=== PATIENT | male | born 1960 | race Caucasian/White ===

== ENCOUNTER 2021-04-20 03:59 | Inpatient (IN) ==
[2021-04-20] MEDS ORDERED: Morphine 4 MG/ML VIAL (1 ml) IV ONE (04:17)
[2021-04-20] MEDS ORDERED: Morphine 4 MG/ML VIAL (1 ml) IV PRN (04:17)
[2021-04-20 04:38] LABS: Hematocrit 43 % (42-52); Hemoglobin 14.5 g/dL (14.0-18.0); Mean Corpuscular HGB Conc 34 g/dL (31-36); Mean Corpuscular Hemoglobin 31 pg (27-31); Mean Corpuscular Volume 90 fL (80-94); Mean Platelet Volume 6.4 fL (7.4-10.4); Platelet Count 479 10^3/uL (150-450); Red Blood Count 4.76 10^6 /uL (4.18-5.48); Red Cell Distribution Width 15 % (10-15); White Blood Count 11.8 10^3/uL (3.5-10.8)
[2021-04-20 04:56] LABS: Albumin/Globulin Ratio 0.8 (1-3); Calcium 8.8 mg/dL (8.6-10.3); Globulin 3.6 g/dL (2-4); Total Bilirubin 0.3 mg/dL (0.2-1.0); Total Protein 6.6 g/dL (6.4-8.9)
[2021-04-20] MEDS ORDERED: Iohexol 300 (CONTRAST) 10 ML SDV IV ONE ×2 (05:05→16:09)
[2021-04-20 05:11] LABS: ABS Basophils 0.1 10^3/ul (0-0.2); ABS Eosinophils 0.5 10^3/ul (0-0.6); ABS Lymphocytes 2.5 10^3/ul (1.0-4.8); ABS Monocytes 1.7 10^3/ul (0-0.8); ABS Neutrophils 7.1 10^3/ul (1.5-7.7); Eosinophil % 3.9 %; Lymphocyte % 21.2 %
[2021-04-20 05:24] LABS: Troponin I 0.01 ng/mL (<0.03)
[2021-04-20 05:37] LABS: Influenza A Molecular Negative (Negative)
[2021-04-20] MEDS ORDERED: Azithromycin 500 mg/250 ml NS 500 MG/250 ML BAG IVPB ONE (06:13)
[2021-04-20] MEDS ORDERED: methylPREDNISolone 125 mg 2 ML VIAL IV ONE (06:13)
[2021-04-20] MEDS ORDERED: Albuterol/Ipratropium NEB.SOL (2.5/0.5 MG) 3 ML NEB.SOLN INH PRN (06:47)
[2021-04-20] MEDS ORDERED: Lidocaine PATCH 5% PATCH TRANSDERM PRN (06:54)
[2021-04-20] MEDS ORDERED: Heparin 5000 UNITS/ML 1 mL VIAL SUBCUT SCH (07:00)
[2021-04-20] MEDS ORDERED: Lactated Ringers 1000 ml BAG 1,000 ML IV SCH (07:00)
[2021-04-20] MEDS: methylPREDNISolone SOD 40 mg/ml 1 ml VIAL IV SCH ×3 (07:39→23:10)
[2021-04-20] MEDS: cefTRIAXone 1 gm/50 mL NS BAG 1 GM/50 ML BAG IVPB SCH (08:30)
[2021-04-20] MEDS: Albuterol HFA INHALER 8 gm MDI INH SCH ×4 (08:49→19:31)
[2021-04-20 08:53] LABS: Influenza B Molecular Negative (Negative)
[2021-04-20 10:16] LABS: Rapid COVID-19 Molecular Undetected (Undetected)
[2021-04-20] MEDS ORDERED: Acetaminophen IV 1 GM/100ML 100 ML IV ONE (11:38)
[2021-04-20] MEDS ORDERED: oxyCODONE/Acetamin 5/325 mg TAB PO PRN (12:05)
[2021-04-20] MEDS ORDERED: Morphine 2 MG/ML SYRINGE IV PRN (12:27)
[2021-04-20] MEDS ORDERED: Perflutren Lipid Microsphere 3 ML VIAL ONE (12:32)
[2021-04-20] MEDS: Enoxaparin 40 MG/0.4 ML SYR SUBCUT SCH (12:35)
[2021-04-20] MEDS ORDERED: Lidocaine Patch REMOVE NOTE PATCH OFF SCH ×2 (21:00)
[2021-04-21] MEDS: Albuterol HFA INHALER 8 gm MDI INH SCH ×4 (01:00→19:36)
[2021-04-21 04:54] LABS: ABS Basophils 0.1 10^3/ul (0-0.2); ABS Lymphocytes 1.4 10^3/ul (1.0-4.8); ABS Neutrophils 12.9 10^3/ul (1.5-7.7); Eosinophil % 0.1 %; Hematocrit 40 % (42-52); Hemoglobin 13.6 g/dL (14.0-18.0); Lymphocyte % 9.3 %; Mean Corpuscular HGB Conc 34 g/dL (31-36); Mean Corpuscular Hemoglobin 30 pg (27-31); Mean Corpuscular Volume 89 fL (80-94); Mean Platelet Volume 6.4 fL (7.4-10.4); Platelet Count 479 10^3/uL (150-450); Red Blood Count 4.53 10^6 /uL (4.18-5.48); Red Cell Distribution Width 15 % (10-15); White Blood Count 15.4 10^3/uL (3.5-10.8)
[2021-04-21 05:35] LABS: Magnesium 2.2 mg/dL (1.9-2.7)
[2021-04-21 05:48] LABS: Calcium 8.5 mg/dL (8.6-10.3); Potassium 4.2 mmol/L (3.5-5.0)
[2021-04-21 05:50] LABS: Phosphorus 4.1 mg/dL (2.5-5.0)
[2021-04-21] MEDS: methylPREDNISolone SOD 40 mg/ml 1 ml VIAL IV SCH ×3 (07:52→22:49)
[2021-04-21] MEDS: cefTRIAXone 1 gm/50 mL NS BAG 1 GM/50 ML BAG IVPB SCH (07:58)
[2021-04-21] MEDS ORDERED: Sodium Chloride(INHALANT) 3% 4 ML NEB.SOLN INH PRN (10:53)
[2021-04-21] MEDS: Enoxaparin 40 MG/0.4 ML SYR SUBCUT SCH (13:33)
[2021-04-21] MEDS ORDERED: Lorazepam PYXIS KEY PRN (17:59)
[2021-04-21] MEDS: LORazepam 2 mg VIAL 1 ml IV PUSH PRN (21:15)
[2021-04-22] MEDS: Albuterol HFA INHALER 8 gm MDI INH SCH ×4 (00:46→20:28)
[2021-04-22 06:17] LABS: ABS Neutrophils 16.8 10^3/ul (1.5-7.7); Hematocrit 40 % (42-52); Hemoglobin 13.1 g/dL (14.0-18.0); Lymphocyte % 5.4 %; Mean Corpuscular HGB Conc 33 g/dL (31-36); Mean Corpuscular Hemoglobin 30 pg (27-31); Mean Corpuscular Volume 90 fL (80-94); Mean Platelet Volume 6.6 fL (7.4-10.4); Platelet Count 527 10^3/uL (150-450); Red Cell Distribution Width 15 % (10-15); White Blood Count 18.8 10^3/uL (3.5-10.8)
[2021-04-22 06:34] LABS: Calcium 8.4 mg/dL (8.6-10.3); Potassium 4.7 mmol/L (3.5-5.0)
[2021-04-22] MEDS: methylPREDNISolone SOD 40 mg/ml 1 ml VIAL IV SCH ×3 (08:41→22:22)
[2021-04-22] MEDS: cefTRIAXone 1 gm/50 mL NS BAG 1 GM/50 ML BAG IVPB SCH (08:53)
[2021-04-22 10:09] LABS: HIV 4th Generation Nonreactive (Nonreactive)
[2021-04-22] MEDS: Enoxaparin 40 MG/0.4 ML SYR SUBCUT SCH (14:26)
[2021-04-22] MEDS: LORazepam 2 mg VIAL 1 ml IV PUSH PRN (22:37)
[2021-04-23] MEDS: Albuterol HFA INHALER 8 gm MDI INH SCH ×4 (01:52→20:07)
[2021-04-23 05:04] LABS: ABS Monocytes 0.6 10^3/ul (0-0.8); ABS Neutrophils 15.3 10^3/ul (1.5-7.7); Hematocrit 41 % (42-52); Hemoglobin 13.7 g/dL (14.0-18.0); Lymphocyte % 5.9 %; Mean Corpuscular HGB Conc 33 g/dL (31-36); Mean Corpuscular Hemoglobin 30 pg (27-31); Mean Corpuscular Volume 91 fL (80-94); Mean Platelet Volume 6.5 fL (7.4-10.4); Platelet Count 558 10^3/uL (150-450); Red Blood Count 4.54 10^6 /uL (4.18-5.48); Red Cell Distribution Width 15 % (10-15)
[2021-04-23 05:15] LABS: INR 1.09 (0.86-1.15)
[2021-04-23 05:24] LABS: Calcium 8.5 mg/dL (8.6-10.3); Potassium 4.5 mmol/L (3.5-5.0)
[2021-04-23] MEDS: methylPREDNISolone SOD 40 mg/ml 1 ml VIAL IV SCH ×3 (06:45→23:22)
[2021-04-23] MEDS: cefTRIAXone 1 gm/50 mL NS BAG 1 GM/50 ML BAG IVPB SCH (08:09)
[2021-04-23] MEDS ORDERED: Benzocaine/Butamben/Tetracain (CETACAINE - SINGLE USE) 5 gm TOPICAL ONE (13:57)
[2021-04-23] MEDS ORDERED: Lidocaine 2% PF 5 ML VIAL ONE (14:00)
[2021-04-23] MEDS ORDERED: Rocuronium 50 mg VIAL 10 mg/ml 5 ml VIAL (50 mg) ONE (14:00)
[2021-04-23] MEDS ORDERED: Propofol 10 MG/ML 20 ML BTL ONE ×2 (14:00→14:56)
[2021-04-23] MEDS ORDERED: fentaNYL 100 mcg/2 ml 50 MCG/ML VIAL ONE (14:00)
[2021-04-23] MEDS ORDERED: Midazolam 2 mg/2 ml VIAL 1 mg/ml 2 ml VIAL (2 mg) ONE (15:19)
[2021-04-23] MEDS ORDERED: Phenylephrine 40 mcg/mL 10mL (400mcg) SYRINGE ONE (15:40)
[2021-04-23] MEDS ORDERED: EPHEDrine (Pressors) 50 MG/ML VIAL ONE (15:44)
[2021-04-23] MEDS ORDERED: Ondansetron 4 mg VIAL 2 MG/ML 2 ml VIAL ONE (16:09)
[2021-04-23] MEDS: Enoxaparin 40 MG/0.4 ML SYR SUBCUT SCH (17:57)
[2021-04-23] MEDS: LORazepam 2 mg VIAL 1 ml IV PUSH PRN (22:52)
[2021-04-24] MEDS: Albuterol HFA INHALER 8 gm MDI INH SCH ×4 (00:55→19:33)
[2021-04-24] MEDS: methylPREDNISolone SOD 40 mg/ml 1 ml VIAL IV SCH ×2 (02:57→11:13)
[2021-04-24 03:19] LABS: ABS Lymphocytes 1.3 10^3/ul (1.0-4.8); ABS Neutrophils 12.3 10^3/ul (1.5-7.7); Eosinophil % 0.2 %; Hematocrit 40 % (42-52); Hemoglobin 13.5 g/dL (14.0-18.0); Lymphocyte % 8.7 %; Mean Corpuscular HGB Conc 34 g/dL (31-36); Mean Corpuscular Hemoglobin 31 pg (27-31); Mean Corpuscular Volume 91 fL (80-94); Mean Platelet Volume 6.7 fL (7.4-10.4); Platelet Count 557 10^3/uL (150-450); Red Cell Distribution Width 14 % (10-15); White Blood Count 14.7 10^3/uL (3.5-10.8)
[2021-04-24 03:33] LABS: Blood Urea Nitrogen 22 mg/dL (6-24); CO2 Carbon Dioxide 25 mmol/L (22-32); Calcium 8.4 mg/dL (8.6-10.3); Chloride 102 mmol/L (101-111); Glucose 175 mg/dL (70-100); Magnesium 2.3 mg/dL (1.9-2.7); Sodium 133 mmol/L (135-145)
[2021-04-24 04:38] LABS: Potassium Redraw 4.7 mmol/L (3.5-5.0)
[2021-04-24 04:39] LABS: Anion Gap 6 mmol/L (2-11)
[2021-04-24] MEDS: cefTRIAXone 1 gm/50 mL NS BAG 1 GM/50 ML BAG IVPB SCH (07:30)
[2021-04-24 11:02] LABS: Phosphorus 3.6 mg/dL (2.5-5.0)
[2021-04-24] MEDS: Enoxaparin 40 MG/0.4 ML SYR SUBCUT SCH (14:05)
[2021-04-24] MEDS ORDERED: Lorazepam PYXIS KEY ONE (22:29)
[2021-04-24] MEDS: LORazepam 2 mg VIAL 1 ml IV PUSH PRN (22:33)
[2021-04-25] MEDS: Albuterol HFA INHALER 8 gm MDI INH SCH ×4 (00:34→21:26)
[2021-04-25] MEDS: cefTRIAXone 1 gm/50 mL NS BAG 1 GM/50 ML BAG IVPB SCH (08:20)
[2021-04-25] MEDS ORDERED: Lorazepam PYXIS KEY ONE ×2 (10:20→20:55)
[2021-04-25] MEDS ORDERED: LORazepam 2 mg VIAL 1 ml ONE (10:20)
[2021-04-25] MEDS: LORazepam 2 mg VIAL 1 ml IV PUSH PRN ×2 (10:24→21:00)
[2021-04-25] MEDS: Enoxaparin 40 MG/0.4 ML SYR SUBCUT SCH (11:58)
[2021-04-26] MEDS: Albuterol HFA INHALER 8 gm MDI INH SCH ×5 (06:53→22:59)
[2021-04-26] MEDS: cefTRIAXone 1 gm/50 mL NS BAG 1 GM/50 ML BAG IVPB SCH (10:19)
[2021-04-26] MEDS ORDERED: Gadoteridol (CONTRAST) 279.3 MG/ML 10 ML IV ONE (12:11)
[2021-04-26] MEDS: Enoxaparin 40 MG/0.4 ML SYR SUBCUT SCH (13:50)
[2021-04-26] MEDS: LORazepam 2 mg VIAL 1 ml IV PUSH PRN (13:51)
[2021-04-26] MEDS ORDERED: Furosemide 40 mg/4 ml IV VIAL IV SLOW PU ONE (17:14)
[2021-04-27 04:20] VITALS: BP 102/70
[2021-04-27] MEDS: Albuterol HFA INHALER 8 gm MDI INH SCH ×2 (07:48→13:34)
[2021-04-27 12:16] LABS: Rapid COVID-19 Molecular Undetected (Undetected)
[2021-05-13 14:33] LABS: LNGPR Specimen Cells; LNGPR Tissue ID CN21-1593-1
== END 2021-04-27 12:51 | disposition left against medical advice (07) | DRG 871 ==
LOC: ED 03:59 → ICU 06:11 → SUATTDRO 06:11 → ICU 07:05 → MEDTELE 04-25 19:32
PROVIDERS: ADMIT Surgery Surgical Critical Care; ATTEND Internal Medicine